=== PATIENT | male | born 1950 | race Caucasian/White ===

== ENCOUNTER 2023-05-04 09:56 | Emergency (ER) | payer OTHER, BC ==
[2023-05-04 10:20] VITALS: TEMP 98.9; BMI 31.6
[2023-05-04] MEDS ORDERED: DALBAVANCIN HCL 1,500 MG in DEXTROSE 5%-WATER - 500 ML IVPB ONE (10:29)
[2023-05-04 11:52] VITALS: BP 140/85; PULSE 82; RESP 16
== END 2023-05-04 12:12 | disposition home or self-care (01) ==
LOC: FER 09:56
DX: L03.116 Cellulitis of left lower limb (principal)
CPT/HCPCS: 99284-25; J0875